=== PATIENT | female | born 1975 | race Asian ===

== ENCOUNTER → 2019-01-01 | Outpatient (CLI) | payer BC ==
[2006-07-14 07:30] VITALS: PULSE 76; TEMP 97.9
[~2019-01-01] MED LIST: NO HOME MEDICATIONS
== END ==
LOC: MC.RAD 16:00
DX: Z12.31 Encounter for screening mammogram for malignant neoplasm of breast (principal); N60.01 Solitary cyst of right breast; N60.02 Solitary cyst of left breast